=== PATIENT | male | born 1955 | race Caucasian/White ===

== ENCOUNTER → 2018-02-14 06:43 | Outpatient (CLI) | payer OTHER, SELFPAY ==
--- NOTE | 2018-02-14 | DI.MRI.S_ITS ---
PROCEDURE: MR SHOULDER RT WO CON INDICATIONS: PAIN OF RIGHT SHOULDER POST FALL TECHNIQUE: Noncontrast oblique coronal T2 fast spin echo with fat saturation, oblique sagittal T1 spin echo and T2 fast spin echo with fat saturation, axial T1 spin echo and T2 fast spin echo with fat saturation through the shoulder. COMPARISON: None. FINDINGS: Image quality: Excellent. Rotator cuff: Massive full-thickness tear involving the supraspinatus, subscapularis and infraspinatus tendons measuring approximately 5.6 cm in AP dimension as seen on sagittal image 10 series 8. Teres minor appears intact. Atrophy of the supraspinatus, infraspinatus and subscapularis muscle bellies is present. Bones and bursae: No bone marrow contusions or fractures. Severe hypertrophic acromioclavicular joint degeneration. The acromion demonstrates conventional anatomy, without an os acromiale. Capsule and soft tissues: Hypertrophied, heterogeneous appearance of the anteroinferior labrum suggestive of chronic tear although no intrasubstance degenerative gadolinium signal intensity is currently identified. There is also blunting of the posterior labrum which is probably chronic. The long head of the biceps tendon is medially subluxed, and there is intra-articular segment tendinopathy. The rotator interval appears normal, without fibrosis. The coracohumeral ligament is normal in thickness. IMPRESSION: Massive full-thickness tear involving the supraspinatus, subscapularis and infraspinatus tendons Associated atrophy of the respective muscle bellies. Medial subluxation of the long head biceps tendon, with intra-articular segment tendinopathy. Chronic appearing anteroinferior and posterior degenerative labral tear/fraying Dictated by: Kalen Toro M.D. on 02/14/2018 at 9:33 Approved by: Kalen Toro M.D. on 02/14/2018 at 9:39
== END ==
PROVIDERS: Visit Provider Orthopaedic Surgery
DX: M75.121 Complete rotator cuff tear or rupture of right shoulder, not specified as traumatic (principal); S43.081A Other subluxation of right shoulder joint, initial encounter
CPT/HCPCS: 73221

== ENCOUNTER → 2018-07-03 12:35 | Outpatient (CLI) | payer OTHER, SELFPAY ==
--- NOTE | 2018-07-03 | DI.MRI.S_ITS ---
PROCEDURE: MR SHOULDER RT W CON INDICATIONS: IMPINGMENT SYNDROME OF RIGHT SHOULDER TECHNIQUE: After the administration of 12 mL of dilute intra-articular Gadolinium contrast, oblique coronal T1 and T2 spin echo with fat saturation, oblique sagittal T1 spin echo with and without fat saturation, oblique sagittal T2 fast spin echo with fat saturation, axial T1 spin echo with fat saturation through the shoulder. COMPARISON: [facility], MR, MR SHOULDER RT WO CON, 02/14/2018, 6:57. FINDINGS: Image quality: Severely degraded by motion artifact Rotator cuff: Postsurgical changes related to prior rotator cuff repair. Recurrent full thickness tear of the supraspinatus and infraspinatus tendons measuring approximately 4.5 cm in AP dimension as seen on sagittal image 13 series 10. Teres minor appears grossly intact. Near full thickness articular sided tear of the subscapularis tendon. There is atrophy of the supraspinatus and infraspinatus muscles. Bones and bursae: No bone marrow contusions or fractures. Moderate to severe acromioclavicular joint degeneration. The acromion demonstrates conventional anatomy, without an os acromiale. Capsule and soft tissues: Blunted appearance of the superior labrum with intermediate intrasubstance signal change. This could be postoperative appearance. No discrete intrasubstance gadolinium signal intensity. However, there is mild posterior subluxation of the humeral head relative to the glenoid, and blunted appearance of the posterior and inferior segment of the labrum. The long head of the biceps tendon demonstrates medial subluxation, for example image 11 series 6. No rupture identified. The rotator interval appears normal, without fibrosis. The coracohumeral ligament is of normal thickness. No intra-articular bodies. IMPRESSION: Status post rotator cuff repair since the prior examination. Large recurrent full thickness tear involving the supraspinatus and infraspinatus muscles, as well as near full thickness articular sided tear of the subscapularis tendon. Medial subluxation of the long head biceps tendon as before. Circumferential blunted appearance of the labrum suggesting postoperative sequela versus chronic degeneration/fraying. There is also mild posterior subluxation of the humeral head, in keeping with microinstability. This was present on the prior study, however appears more conspicuous currently. Motion degraded examination. Dictated by: Kalen Toro M.D. on 07/03/2018 at 13:57 Approved by: Kalen Toro M.D. on 07/03/2018 at 14:09
--- NOTE | 2018-07-03 | DI.RAD.S_ITS ---
PROCEDURE: FL SHOULDER INJECTION MR/CT RT INDICATIONS: IMPINGMENT SYNDROME OF RIGHT SHOULDER TECHNIQUE: The indications, alternatives, benefits, risks, and complications of the procedure were explained to the patient. Written informed consent was obtained and placed in the chart. The shoulder was examined fluoroscopically and a site for needle placement chosen for entry into the glenohumeral joint from an anterior approach. The skin was prepped and draped in a sterile fashion, and 1% lidocaine infiltrated from skin down to joint capsule. A spinal needle was inserted into the glenohumeral joint, and a small amount of iodinated contrast media injected to confirm intra-articular placement of the needle tip. This was followed by approximately 12 mL dilute solution of a gadolinium containing MR contrast agent. The needle was removed and a dressing was applied. The patient was given postprocedural instructions and sent to the MR suite for MR imaging. FINDINGS: A single fluoroscopic spot image demonstrates intra-articular location of injected iodinated contrast. IMPRESSION: Successful fluoroscopically guided administration of dilute Gadolinium solution into the shoulder joint for MR arthrogram. Dictated by: Geoff Pool M.D. on 07/03/2018 at 15:47 Approved by: Geoff Pool M.D. on 07/03/2018 at 15:47
== END ==
PROVIDERS: PCP Family Medicine; Visit Provider Orthopaedic Surgery
DX: M75.41 Impingement syndrome of right shoulder (principal); M75.121 Complete rotator cuff tear or rupture of right shoulder, not specified as traumatic; M19.011 Primary osteoarthritis, right shoulder
CPT/HCPCS: 23350; 73222; 77002

== ENCOUNTER → 2025-03-04 08:15 | Outpatient (CLI) | payer OTHER, SELFPAY ==
[2025-03-04 08:36] LABS: Add Manual Diff / Slide Review NO; Hematocrit 47.0 % (41-53); Hemoglobin 15.7 g/dL (13.5-17.5); Lymphocytes Absolute Auto 1900 /uL (1100-4500); Mean Corpuscular HGB Conc 33.4 % (30-36); Mean Corpuscular Hemoglobin 31.6 PG (26-34); Mean Corpuscular Volume 94.6 fL (80-100); Platelet Count 258 X10^3/uL (150-400)
[2025-03-04 08:44] LABS: Hemoglobin A1C% w Est Avg Glu 6.3 % (4.0-6.0)
[2025-03-04 09:09] LABS: Alanine Aminotransferase 39 IU/L (<50); Albumin 4.3 g/dL (3.5-5.0); Albumin Globulin Ratio 1.5 (1.0-2.8); Alkaline Phosphatase 77 U/L (38-126); Blood Urea Nitrogen 14 mg/dL (9-20); Calcium 9.3 mg/dL (8.4-10.2); Carbon Dioxide 27 mmol/L (22-32); Chloride 105 mmol/L (98-107); Cholesterol 135 mg/dL (140-199); Estimated Glomerular Filt Rate > 60 mL/min (>60); Globulin 2.8 g/dL (1.7-4.1); Glucose 103 mg/dL (70-99); HDL Cholesterol 36 mg/dL (40-60); HEMOLYSIS < 15 (0-50); Potassium 5.0 mmol/L (3.4-5.1); Sodium 138 mmol/L (137-145); Total Protein 7.1 g/dL (6.3-8.2); Triglycerides 113 mg/dL (35-150)
[2025-03-04 09:40] LABS: TSH w/ Reflex to FT4 3.81 uIU/mL (0.47-4.68)
== END ==
PROVIDERS: PCP Family Medicine; Referring Provider Family Medicine; Visit Provider Family Medicine
DX: Z12.5 Encounter for screening for malignant neoplasm of prostate (principal); R73.9 Hyperglycemia, unspecified; I10 Essential (primary) hypertension; E78.5 Hyperlipidemia, unspecified; R73.03 Prediabetes
CPT/HCPCS: 36415; 80053; 80061; 83036; 84443; 85025; G0103